=== PATIENT | female | born 1985 | race Caucasian/White ===

== ENCOUNTER 2021-11-30 16:23 | Emergency (ER) | payer BC, SELFPAY ==
[2021-11-30 16:32] VITALS: BP 121/80; PULSE 77; RESP 16; TEMP 36.8; O2SAT 100
--- NOTE | 2021-11-30 16:37 | ED.FEMALEGU ---
HPI - Female Genitourinary General Chief complaint: Urogenital-Female Stated complaint: Urinary Problem Time Seen by Provider: 11/30/21 16:30 Source: patient and RN notes reviewed History of Present Illness HPI Narrative: Patient is a 36-year-old female who presents the urgent care with complaints of a possible UTI. Patient states that 3 days ago she started having symptoms of urinary dysuria, urgency and dribbling. 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 Patient states that she is increased her water intake and has been using Azo. Denies of any fever, chills, nausea, vomiting, low back pain or abdominal pain. Patient states she has not had any recent UTI, it has been approximately 1 year. No other acute complaints. No acute distress noted. Patient aware of the plan of care. Some parts of this dictation were generated by voice recognition software and may contain typographical and/or grammatical inaccuracies. Related Data Home Medications Medication Instructions Recorded Confirmed Steroid Pack 11/30/21 sertraline [Zoloft] 50 mg PO DAILY 11/30/21 11/30/21 Allergies Allergy/AdvReac Type Severity Reaction Status Date / Time No Known Allergies Allergy Verified 11/30/21 16:43 Review of Systems Review of Systems: CONSTITUTIONAL: Denies fever, chills, or sweats. EYES: Denies visual changes, redness, or discharge. ENT: Denies rhinorrhea, congestion, sore throat, or otalgia. CARDIOVASCULAR: Denies chest pain, palpitations, or edema. RESPIRATORY: Denies cough or dyspnea. GASTROINTESTINAL: Denies abdominal pain, nausea, vomiting, or diarrhea. GENITOURINARY: Reports of dysuria, urgency and dribbling SKIN: Denies rash or itching. MUSCULOSKELETAL: Denies back pain, joint pain, or myalgia. NEUROLOGIC: Denies headache, numbness, or weakness. All other systems reviewed are negative, except as documented in HPI. PMFSH Comments At the time of my signature, I reviewed and agree with the nursing past medical, surgical, social, and family history. There is no relevant family history pertinent to the patient complaint. Exam Narrative: GENERAL: This is a well-nourished, well-developed patient, in no apparent distress. HEAD: normocephalic, atraumatic. EYES: PERRL. Sclera clear/white. Vision is grossly intact. EARS: External ears normal NOSE: External nose normal with no obvious nasal discharge, nares without redness, no rhinorrhea. THROAT: Mucous membranes moist NECK: Neck supple CARDIOVASCULAR: Regular rate and rhythm without murmurs, gallops, or rubs. RESPIRATORY: Clear to auscultation. Breath sounds equal bilaterally. No wheezes, rales, or rhonchi. GASTROINTESTINAL: Abdomen soft, non-tender, nondistended. Bowel sounds are active. SKIN: warm, intact with no suspicious lesions or rash, good texture and turgor. NEURO: awake, alert, and oriented to person, place and time. There were no obvious focal neurologic abnormalities. EXTREMITIES: No clubbing, cyanosis, or edema. BACK: Negative bilateral CVA tenderness Course Course Level of Care: Express Care Visit Vital Signs Vital signs: Vital Signs Temperature 98.3 F 11/30/21 16:32 Pulse Rate 77 11/30/21 16:32 Respiratory Rate 16 11/30/21 16:32 Blood Pressure 121/80 11/30/21 16:32 Pulse Oximetry 100 11/30/21 16:32 Temperature 98.3 F 11/30/21 16:32 Pulse Rate 77 11/30/21 16:32 Respiratory Rate 16 11/30/21 16:32 Blood Pressure 121/80 11/30/21 16:32 Pulse Oximetry 100 11/30/21 16:32 Reviewed MDM - Female Genitourinary MDM Narrative Medical decision making narrative: Reviewed lab results with the patient. She is aware that urine analysis does show a trace amount of blood and possible bacteria. Advised patient to start the antibiotic regimen as prescribed. Use the Pyridium as needed for bladder spasms. Continue your increase in water intake and avoid sugary and caffeinated drinks. Be zenaida
== END 2021-11-30 17:02 | disposition home or self-care (01) ==
PROVIDERS: Emergency Provider Nurse Practitioner Family
DX: N39.0 Urinary tract infection, site not specified (principal)
CPT/HCPCS: 81003; 87077; 87086; 87186; 99213; G0463

== ENCOUNTER 2025-05-21 13:13 | Emergency (ER) | payer OTHER, SELFPAY ==
--- OUTSIDE RECORDS SUMMARY | 2025-05-21 13:16 | XMS_ITS | Clinical Summary ---
Author Organization [facility] Address [address] [place] [address] Care Team Providers Care Timber Skidder Name Role Phone Rl Sandoval MD Primary Care Provider [phone] Allergies No known active allergies Medications sertraline (ZOLOFT) 50 mg tablet Take 1 tablet (50 mg total) by mouth daily 30 tablet 11 01/07/2025 Active Active Problems Problem Noted Date Diagnosed Date Previous delivery, delivered 05/05/2025 Twin dichorionic diamniotic placenta 05/05/2025 Request for sterilization 05/05/2025 Low lying placenta nos or wi thout hemorrhage, second trimester 03/02/2025 Overview (03/09/2025): MFM sono at 20 wk - A: posterior low lying placenta. RESOLVED on follow up imaging. GBS bacteriuria 01/07/2025 Overview (01/07/2025): Urine culture 12/10/24 - penicillin if labors Encounter for general counse ling and advice on contraceptive management 01/07/2025 Overview (01/07/2025): Interested in permanent contraception. Plan for bilateral salpingectomy at time of . Previous delivery affecting 0 12/11/2024 Overview (05/13/2025): 2022 - intolerance of labor, small T extension. Plan repeat - scheduled 06/24/25 at 1200 with bilateral salpingectomy. Dichorionic diamniotic twin , antepartu m 12/11/2024 Antepartum multigravida of advanced maternal age 0212/11/2024 Overview (01/07/2025): NIPT - low risk, females. ASA 81 mg daily at 12 weeks Encounter for preventive health examination 01/2025 Assessment & Plan (11/07/2024 6:14 PM INFECTION PREVENTION SPECIALIST): 39-year-old lady who is a new patient to me. She has a history of anxiety she is maintained on Zoloft 25 mg daily. Presently 5 weeks observation visit in one-month. No lab today TAVR leave this to the opposite attritional the upcoming visit. Has a history of obesity review of chart. Severe obesity (BMI >= 40) 08/11/2022 Assessment & Plan (11/07/2024 6:14 PM INFECTION PREVENTION SPECIALIST): Will arrange for last 10 years has been between 231 lb and 278 lb. Presently . Anxiety disorder 08/11/2022 Overview (01/07/2025): Managed by PCP. Discontinued Buspirone with in 2021. Zoloft weaned with - 25 mg every other day. - 25 mg daily. 01/2025 - increased to 50 mg daily. Assessment & Plan (11/07/2024 6:15 PM INFECTION PREVENTION SPECIALIST): Patient will be seeing Dr. 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 Estimated Date of Delivery Comme nts Yes 07/08/2025 Based on last al nstrual period of 10/01/2024 (Exact Date) Resolved Problems Problem Noted Date Diagnosed Date Resolved Date with 39 completed weeks gestation 03/05/2023 04/16/2023 GBS bacteriuria 09/12/2022 01/07/2025 Overview (09/12/2022): In - penicillin in labor Advanced maternal age, primi , antepartum 08/11/2022 04/16/2023 Overview (08/24/2022): NIPT - normal female. Dermoid cyst 05/20/2021 08/11/2022 Encounters Date Type Department Care Team Description 05/13/2025 3:25 PM CDT Office Visit [facility] [place] [facility] [address] [place] [address] Zuleyma Thorne MD care, subsequent , third trimester (Primary Dx) 05/13/2025 Orders Only [facility] [place] [facility] [address] [place] [address] Zuleyma Thorne MD Poor growth affecting in third trimester, fetus 1 of multiple gestation (Primary Dx); Maternal care for poor growth, third trimester, fetus 1 05/06/2025 Telephone [facility] [place] [facility] [address] [place] [address] Zuleyma Thorne MD Fall 05/05/2025 7:52 AM CDT - 05/05/2025 11:59 PM CDT Hospital Encounter [facility] [address] [place] [phone] Dichorionic diamniotic twin , antepartum Discharge Disposition: Discharge to home or self care 05/01/2025 8:40 AM CDT Office Visit [facility] [place] [facility] [address] [place] [address] Zuleyma Thorne MD care, subsequent , third trimester (Primary Dx) 04/20/2025 Results Follow-Up [facility] [place] [facility] [address] [place] [address] Zuleyma Thorne MD CBC with auto differential, GTT 50gm 1hr gestational screen, RPR Blood, Additional followed-up results: 3 04/17/2025 8:10 AM CDT Lab [facility] [address] [place] [address] Encounter for supervision of normal first in second trimester; 26 weeks gestation of 04/08/2025 2:23 PM CDT - 04/08/2025 11:59 PM CDT Hospital Encounter [address] [place] [phone] Low lying placenta nos or without hemorrhage, second trimester; Obesity affecting in second trimester, unspecified obesity type; Dichorionic diamniotic twin , antepartum Discharge Disposition: Discharge to home or self care 04/08/2025 Orders Only [address] [place] [phone] Sharon Jackson [facility] Dichorionic diamniotic twin , antepartum (Primary Dx) 04/01/2025 9:00 AM CDT Office Visit [facility] [place] [facility] [address] [place] [address] Zuleyma Thorne MD care, subsequent , second trimester (Primary Dx) 04/01/2025 Telephone [facility] [place] [facility] [address] [place] [address] Zuleyma Thorne MD 04/01/2025 Orders Only [facility] [place] [facility] [address] [place] [address] Zuleyma Thorne MD Encounter for supervision of normal first in second trimester (Primary Dx); 26 weeks gestation of 03/09/2025 9:41 AM CDT - 03/09/2025 11:59 PM CDT Hospital Encounter [address] [place] [phone] Encounter for follow-up ultrasound of anatomy Discharge Disposition: Discharge to home or self care 03/02/2025 3:20 PM CDT Office Visit [facility] [place] [facility] [address] [place] [phone] Zuleyma Thorne MD care, subsequent , second trimester (Primary Dx) 02/20/2025 12:01 PM CDT - 02/20/2025 11:59 PM CDT Hospital Encounter [facility] [address] [place], [place] [phone] Dichorionic diamniotic twin in first trimester; BMI 40.0-44.9, adult (HCC) Discharge Disposition: Discharge to home or self care 02/20/2025 Orders Only [facility] [address] [place] [address] Sharon Jackson RDMS Encounter for follow-up ultrasound of anatomy (Primary Dx) from Last 3 Months Immunizations Immunization Administration Dates Next Due Influenza, Quadrivalent, Split, Intramuscular ,08/19/2020 Influenza, Unspecified 09/12/2022 Moderna SARS-CoV-2 Monovalent Vaccination (12+ Y RS) 03/17/2021,02/17/2021 Pfizer Sars-Cov-2 Bivalent Vaccination (5-11 YRS ) 09/12/2022 Tdap 12/21/2022,06/01/2020 Surgical History Surgery Date Site/Laterality Comments APPENDECTOMY 11/05/2019 - 11/04/2020 OOPHERECTOMY 11/05/2020 - 11/04/2021 Left Mini laparotomy - 6.5 cm dermoid cyst SECTION 11/05/2022 - 11/04/2023 Medical History Medical History Date Comments Dermoid cyst of left ovary 2020 Family History Medical History Relation Name Comments Diabetes Mother Hypertension Mother Hyperlipidemia Sister Hypertension Sister Relation Name Status Comments Mother Sister Social History Tobacco Use Types Packs/Day Years Used Date Smoking Tobacco: Never Tobacco Cessation:Counseling Given: Not Answered Social Connection and Isolation Panel [NHANES] A nswer Date Recorded In a typical week, how many times do you talk on the phone with family, friends, or neighbors? Once a week 03/05/20 How often do you get togethe r with friends or relatives? Once a week 03/05/2023 Attends [employer] Services Not on file 03/05 Do you belong to any clubs o r organizations such as uatsdin groups, unions, fraternal or athletic groups, or school groups? No 03/05/2023 Attends Club or Organization Meetings Not on geraldine e 03/05/2023 Are you , , di vorced, , never , or living with a partner? Living with partner 03/05/2023 AUDIT-C Answer Date Recorded Q1: How often do you have a drink containing alc ohol? 2-4 times a month 11/07/2024 Q2: How many drinks containi ng alcohol do you have on a typical day when you are drinking? 3 or 4 11/07/2024 Q3: How often do you have si x or more drinks on one occasion? Never 11/07/2024 Overall Financial Resource Strain (CARDIA) Answe r Date Recorded How hard is it for you to pa y for the very basics like food, housing, medical care, and heating? Not hard at all 01/07/2025 PHQ-2 Answer Date Recorded PHQ-2 Total Score (If total score is 3 or more points, staff should administer the PHQ-9) 0 03/05/2023 [facility]at [facility] - Occupational Stress Questionnaire Answer Date Recorded Do you feel stress - tense, restless, nervous, or anxious, or unable to sleep at night because your mind is troubled all the time - these days? Not at all 03/05/2023 Exercise Vital Sign Answer Date Recorde d On average, how many days pe r week do you engage in moderate to strenuous exercise (like a brisk walk)? 5 days Minutes of Exercise per Session Not on file 03/05/2023 Hunger Vital Sign Answer Date Recorded Within the past 12 months, y ou worried that your food would run out before you got the money to buy more. Never true 01/08/20 25 Within the past 12 months, t he food you bought just didn't last and you didn't have money to get more. Never true 01/07/2025 PRAPARE - Transportation Answer Date Re corded In the past 12 months, has l ack of transportation kept you from medical appointments or from getting medications? No 03/2025 In the past 12 months, has l ack of transportation kept you from meetings, work, or from getting things needed for daily living? No 01/07/2025 Housing Stability Vital Sign Answer Deangelo e Recorded In the last 12 months, was t here a time when you were not able to pay the mortgage or rent on time? No 03/05/2023 In the last 12 months, how many places have you lived? 1 03/05/2023 In the last 12 months, was t here a time when you did not have a steady place to sleep or slept in a longterm (including now)? No 03/05/2023 [place] Depression Scale Answer Date Recorded [place] Depression Scale Total 7 04/16/2023 The thought of harming myself has occurred to me . Never 04/16/2023 Housing Stability Vital Sign Answer Deangelo e Recorded In the last 12 months, was t here a time when you were not able to pay the mortgage or rent on time? No 01/07/2025 In the past 12 months, how m any times have you moved where you were living? 1 01/07/2025 At any time in the past 12 m [facility], were you homeless or living in a longterm (including now)? No 01/07/2025 Personal Safety Answer Date Recorded Have you ever been in or are you currently in a harmful physical or emotional relationship or is someone making you feel afraid or unsafe? Denies 03/05/2023 Estimated Date of Delivery Comme nts Yes 07/08/2025 Based on last me nstrual period of 10/01/2024 (Exact Date) Sex and Gender Information Value Date Recorded Sex Assigned at Not on file Legal Sex Female 12:17 PM CDT Gender Identity Not on file Sexual Orientation Straight 09/05/2022 6: 33 AM CDT Occupation Industry Job Start Date Job End Date Not on file Not on file Not on file Not on file Obstetrics History Para Term AB IAB SAB Ectopic Multiple Livin g Live Births 2 1 1 0 1 1 Date Outcome GA Total Labor Labor/2nd/3rd Weight Sex Type Anes PTL Queenie A1 A5 Name Clin 2022 Term 39w 2d 0h 03m 0h 03m 3.352 kg (7 lb 6.2 oz) F C-Sec tion Epidur al N Livin g 4 9 BELLA OLSEN,G IRLAL Zuleyma Monsivais MD Complications: Intolera nce Delivery Location:This Facil ity ([facility] L AND D PROCEDURE) Current Comments 1. 2022 - cytotec/pitocin in duction for AMA. intolerance of labor. 1' LTCS with small T extension. Summary Episode Dates Number of Fetuses Estimated Date of Delivery 12/10/2024 - Present (05/21/2025) 07/08/2025 (set by Zuleyma Thorne MD on 12/10/2024 based on Last Menstrual Period on 10/01/2024 (Exact Date)) Dating Summary Based On ROBERT GA Diff Last Menstrual Period on 10/01/2024 (Exact Date) 07/08/2025 Working Ultrasound on 12/10/2024 07/05/2025 +3d GA:10w3d Ultrasound on 12/10/2024 07/08/2025 Same GA:10w0d Vitals Date GA Fund Present FHR Mvmt BP Weight Edema Alb Glu Ket Dil/ Eff/Sta 025 10w0d 122/7 8 122 kg (269 lb) 002/20/ 025 20w2d Inpatient data not displayed here. See encounter summary. 025 22w5d Inpatient data not displayed here. See encounter summary. 025 27w0d Inpatient data not displayed here. See encounter summary. 025 30w6d Inpatient data not displayed here. See encounter summary. Notes Progress Notes - Office Visi t - 05/13/2025 - GA:32w0d 05/13/2025 - 32w0d - Zuleyma Thorne MD Reviewed [facility] sono 05/05 - A: breech posterior placenta, MVP 7.6, EFW 1955 g (84%) RVOT visualized. B: transverse, posterior placenta, MVP 5.5, EFW 1749 g (54%). Discordance 10.5% - WNL. Repeat growth sono next visit. Has noticed increased CTXs, irregular and improve with rest. PTL precautions discussed. Progress Notes - Office Visi t - 05/01/2025 - GA:30w2d 05/01/2025 - 30w2d - Zuleyma Thorne MD Feeling well overall other than fatigue. Wakes frequently overnight to void. Reviewed [facility] sono 04/08: A - breech, posterior placenta, MVP 6.7, EFW 1117 g (67%). RVOT not visualized. B - transverse, posterior placenta, MVP 6.6, EFW 1037 g (45%). Scheduled for f/u growth 05/05. Will schedule repeat c/s for 38 wks. Progress Notes - Office Visi t - 04/01/2025 - GA:26w0d 04/01/2025 - 26w0d - Zuleyma Thorne MD Reviewed [facility] sono 5/5 - low lying placenta has resolved. Recommended f/u 4 weeks for growth and baby A RVOT view - she will contact their office to schedule next week. 28-wk labs ordered. Progress Notes - Office Visi t - 03/02/2025 - GA:21w5d 03/02/2025 - 21w5d - Zuleyma Thorne MD Reviewed [facility] sono 02/20 - A: cephalic, posterior LOW LYING placenta, MVP 6, EFW 361 g (59%). B: transverse, posterior placenta, MVP 5.3, EFW 354 g (53%). Scheduled for f/u views 5/5 of missed heart and facial views for A and recheck placenta. Bleeding and activity precautions discussed. Progress Notes - Office Visi t - 02/02/2025 - GA:17w5d 02/02/2025 - 17wd - Zuleyma Thorne MD Anxiety is much better with increased Zoloft to 50 mg. Feeling well overall. Has noticed some flutters. Anatomy scan with [facility] is scheduled 02/20. Progress Notes - Office Visi t - 01/07/2025 - GA:14w0d 01/07/2025 - 14wd - Zuleyma Thorne MD Reviewed OB labs - GBS in urine. Nausea is improved. Taking daily ASA. -- Anxiety - feeling overwhelmed at times. is supportive. Interested in increased dose. Will increase Zoloft from 25 to 50 mg daily and reassess next visit. -- Di-di twins - sono today - A: 14w0d, FHR 144. B; 14w0d, FHR 150. Referral made to [facility] for anatomy ultrasound. -- contraception - she is interested in permanent contraception. Discussed nature of the procedure, anticipated recovery, and surgical risks including anesthesia, infection, bleeding, injury to adjacent organs including bowel, bladder, and ectopic if were to occur. Plan for bilateral salpingectmy at time of repeat c/s. CTION PREVENTION SPECIALIST Progress Notes - Office Visi t - 12/10/2024 - GA:10w0d 12/10/2024 - 10w0d - Zuleyma Thorne MD New OB -- ROBERT 07/08 by definite LMP c/w sono today. Official ultrasound report is pending - twin , likely di-di. OB labs ordered with GC/CT. Advised B6/unisom for nausea. -- Anxiety/depression -stable on Zoloft 25 mg daily. Discussed risks of poorly controlled maternal mental health v medication exposure including MOY, pulm HTN with SSRIs. Continue current management. -- AMA - discussed risks including PIH, GDM, aneuploidy. Discussed genetic screening options, interpretation of same in multifetal gestations. She elects for NIPT. Given other risks including obesity and twin gestation, recommend ASA 81 mg daily at 12 weeks. -- Previous - LTCS with small T extension. Discussed risks/benefits of TOLAC v repeat C/S - uterine rupture v surgical risks, abnormal placentation. Given incision extension, recommend repeat c/s. -- Twin gestation - discussed associated risks including PIH, GDM, IUGR, PTL, delivery. Appears di-di on ultrasound today (official read pending). Will recheck next visit. Discussed if di-di, delivery recommendation is at 38 wks in otherwise uncomplicated pregnancies. Discussed risk of early delivery and option of co-management with MFM or transfer of care. She elects to continue care here at this point. Plan for anatomy scan with MFM. CTION PREVENTION SPECIALIST Last Filed Vital Signs Vital Sign Reading Time Taken Comments Blood Pressure 112/70 05/13/2025 3:21 PM CDT Pulse 85 11/07/2024 1:57 PM INFECTION PREVENTION SPECIALIST Temperature 36.9 C (98.4 F) 11/07/2024 1:57 PM INFECTION PREVENTION SPECIALIST Respiratory Rate 18 11/07/2024 1:57 PM INFECTION PREVENTION SPECIALIST Oxygen Saturation 99% 11/07/2024 1:57 PM INFECTION PREVENTION SPECIALIST Inhaled Oxygen Concentration - - Weight 126.6 kg (279 lb) 05/13/2025 3:21 PM CDT Height 162.6 cm (5' 4) 11/07/2024 1:57 PM INFECTION PREVENTION SPECIALIST Body Mass Index 47.89 11/07/2024 1:57 PM INFECTION PREVENTION SPECIALIST Plan of Treatment Upcoming Encounters Date Type Department Care Team (Late st Contact Info) Description 06/24/2025 12:00 PM CDT Hospital Encounter [facility] [address] [place] [address] Zuleyma Thorne MD [address] [place] [address] 06/24/2025 12:00 PM CDT - 06/24/2025 1:50 PM CDT Surgery [facility] [address] [place] [address] Zuleyma Thorne MD [address] [address] REPEAT SECTION Scheduled Procedures Name Priority Associated Diagnoses Date/Ti me REPEAT SECTION Previous delivery, delivered Twin dichorionic diamniotic placenta Request for sterilization 06/24/2025 12:00 PM CDT LND ADD ON TUBAL LIGATION REPEAT [id number] Previous delivery, delivered Twin dichorionic diamniotic placenta Request for sterilization 06/24/2025 12:00 PM CDT Health Maintenance Due Date Last Done Comments Varicella Vaccines (1 of 2 - 13+ 2-dose series) 2000 Hepatitis B Screening 2005 Cervical Cancer Screening 08/11/2023 08/11/2022 Depression Screening 04/16/2024 04/16/2023, 03/05/2023, 03/05/2023 Covid-19 Vaccine ( season) 2024 09/12/2022, 12/17/2021, 03/17/2021, Additional history exists Influenza Vaccine (#1) 2025 , 09/07/2021, 08/19/2020 Regular Well Visit/Exam 18-64 11/07/2025 11/07/2024 DTaP/Tdap/Td Vaccine (3 - Td or Tdap) 12/21/2032 12/21/2022, 06/01/2020 Hepatitis C Screening Completed 12/10/2024, 022 HPV Vaccines Aged Out No longer eligi ble based on patient's age to complete this topic Pneumococcal vaccine <65 Aged Out No longer eligible based on patient's age to complete this topic Procedures Procedure Name Priority Date/Time Associated Diagnosis Comments POCT URINE GLUCOSE AND PROTEIN Routine 05/13/2025 3:28 PM CDT care, subsequent , third trimester US OB FOLLOW UP Schedule Routine, Read Routine (OP Routine) 05/05/2025 7:52 AM CDT Dichorionic diamniotic twin , antepartum POCT URINE GLUCOSE AND PROTEIN Routine 05/01/2025 8:54 AM CDT care, subsequent , third trimester DIFFERENTIAL AUTO Routine 04/17/2025 9:3 5 AM CDT Encounter for supervision of normal first in second trimester 26 weeks gestation of GTT 50GM 1HR GESTATIONAL SCREEN Routine 04/17/2025 9:35 AM CDT Encounter for supervision of normal first in second trimester 26 weeks gestation of CBC WITH AUTO DIFFERENTIAL Routine 04/17/2025 9:35 AM CDT Encounter for supervision of normal first in second trimester 26 weeks gestation of URINE CULTURE Routine 04/17/2025 9:35 AM CDT Encounter for supervision of normal first in second trimester 26 weeks gestation of HIV 1/2 ANTIBODY PLUS P24 ANTIGEN Routine 04/17/2025 9:35 AM CDT Encounter for supervision of normal first in second trimester 26 weeks gestation of RPR Routine 04/17/2025 9:35 AM CDT Encounter for supervision of normal first in second trimester 26 weeks gestation of US OB FOLLOW UP Schedule Routine, Read Routine (OP Routine) 04/08/2025 2:23 PM CDT Low lying placenta nos or without hemorrhage, second trimester Obesity affecting in second trimester, unspecified obesity type Dichorionic diamniotic twin , antepartum POCT URINE GLUCOSE AND PROTEIN Routine 04/01/2025 9:02 AM CDT care, subsequent , second trimester US OB FOLLOW UP Schedule Routine, Read Routine (OP Routine) 03/09/2025 9:41 AM CDT Encounter for follow-up ultrasound of anatomy POCT URINE GLUCOSE AND PROTEIN Routine 03/02/2025 3:13 PM CDT care, subsequent , second trimester US OB DETAIL ANATOMY SINGLE OR FIRST GESTATION Schedule Routine, Read Routine (OP Routine) 02/20/2025 12:01 PM CDT Dichorionic diamniotic twin in first trimester BMI 40.0-44.9, adult (HCC) HEPATITIS C ANTIBODY Routine 12/10/2024 10:56 AM INFECTION PREVENTION SPECIALIST Encounter for supervision of other normal , first trimester 10 weeks gestation of PAP AND HIGH RISK HPV, REFLEX TO GENOTYPING Routine 08/11/2022 11:17 AM CDT Screening for malignant neoplasm of the cervix Encounter for supervision of normal first in first trimester from Last 3 Months or Most Recently Relevant to Health Maintenance Results * POCT urine glucose and protein (05/13/2025 3:28 PM CDT) Glucose, ur, POC Negative Negative Protein, ur, POC Negative Negative Lot Number [id number] Urine 05/13/2025 3:28 PM CDT Zuleyma Thorne MD POINT OF CARE TEST OR DERABLES Final Result * US Ob Follow Up (05/05/2025 7:52 AM CDT) Fetus# Fetus1 VIEWPOINT Estimated Weight 1,955 g&grams VIEWPOINT Placenta Details posterior, Previa-no VIEWPOINT Presentation Breech Low VIEWPOINT Fetus# Fetus2 VIEWPOINT Estimated Weight 1,749 g&grams VIEWPOINT Placenta Details posterior, Previa-no, no placental masses VIEWPOINT Presentation Transverse high VIEWPOINT Anatomical Region Laterality Modality Abdomen N/A Ultrasound 05/05/2025 7:53 AM CDT Impressions 05/05/2025 9:02 AM CDT Interval growth has been normal and concordant for the twins. Twin 1 remains the presenting twin and is breech today with normal to increased AFV (MVP = 7.6 cm.) Twin 2 is higher and in transverse presentation with normal AFV. The cardiac exam was completed for Twin 1 today with no anomalies identified. DA/DC twin IUP at 30 weeks + 6 days Breech/transverse presentations AGA and concordant growth Narrative Procedure Note Kala Wolf MD - 05/05/2025 IMPRESSION: Interval growth has been normal and concordant for the twins. Twin 1remains the presenting twin and is breech today with normal to increasedAFV (MVP = 7.6 cm.) Twin 2 is higher and in transverse presentation withnormal AFV. The cardiac exam was completed for Twin 1 today with noanomalies identified. DA/DC twin IUP at 30 weeks + 6 days Breech/transverse presentations AGA and concordant growth Result [facility] Zuleyma Thorne MD IMG OB US PROCEDURES Final Result * POCT urine glucose and protein (05/01/2025 8:54 AM CDT) Glucose, ur, POC Negative Negative Protein, ur, POC Negative Negative Lot Number [id number] Urine 05/01/2025 8:54 AM CDT Result [facility] Zuleyma Thorne MD POINT OF CARE TEST OR DERABLES Final Result * (ABNORMAL) Differential, auto (04/17/2025 9:35 AM CDT) Neutrophil abs 7.61(H) 1.50 - 6.50 K/cumm Comment:Testing performed by : [facility], [address] [place] [address]., [id number] Imm gran abs 0.09 0.00 - 0.10 K/cumm [facility] Comment:Testing performed by : [address] [address] Lymphocyte abs 1.49 0.80 - 3.30 K/cumm [facility] Comment:Testing performed by : [address] [address] Monocyte abs 0.89(H) 0.20 - 0.80 K/cumm [facility] [facility] Comment:Testing performed by : [facility], [address] [place] [address]., [id number] Eosinophil abs 0.24 0.00 - 0.50 K/cumm [facility]ER CH Comment:Testing performed by : [address] [address] Basophil abs 0.04 0.00 - 0.10 K/cumm CERNER CH Comment:Testing performed by : [address] [address] Neutrophil pct 73.4 % [facility] Comment: Interpretive Data Percent cell count reference ranges are not reported, since discordance with absolute values may lead to misinterpretation of CBC data. Current Interpretive Data was last revised on 2018. Testing performed by: [address] [address] Imm gran pct 0.9 % [facility] Comment: Interpretive Data Percent cell count reference ranges are not reported, since discordance with absolute values may lead to misinterpretation of CBC data. Current Interpretive Data was last revised on 2018. Testing performed by: [address] [address] Lymphocyte pct 14.4 % [facility] CH Comment: Interpretive Data Percent cell count reference ranges are not reported, since discordance with absolute values may lead to misinterpretation of CBC data. Current Interpretive Data was last revised on 2018. Testing performed by: [address] [address] Monocyte pct 8.6 % [facility] CH Comment: Interpretive Data Percent cell count reference ranges are not reported, since discordance with absolute values may lead to misinterpretation of CBC data. Current Interpretive Data was last revised on 2018. Testing performed by: [address] [address] Eosinophil pct 2.3 % [facility] Comment: Interpretive Data Percent cell count reference ranges are not reported, since discordance with absolute values may lead to misinterpretation of CBC data. Current Interpretive Data was last revised on 2018. Testing performed by: [address] [address] Basophil pct 0.4 % [facility] Comment: Interpretive Data Percent cell count reference ranges are not reported, since discordance with absolute values may lead to misinterpretation of CBC data. Current Interpretive Data was last revised on 2018. Testing performed by: [facility], [address] [place] [address]., [address] Blood 04/17/2025 9:35 AM CDT 04/17/2025 3:31 PM CDT Zuleyma Thorne MD LAB BLOOD ORDERABLES Final Result Performing Organization Address City/[facility] Co de Phone Number MATTIE GENTILE [phone] [address] [employer] [place] [address] * GTT 50gm 1hr gestational screen (04/17/2025 9:35 AM CDT) GTT 50g gest screen 124 <=140 mg/dL Comment: Interpretive Data Used for suspected gestational diabetes. The screening test uses 50 grams of glucose with sample obtained 1 hr later. Normal range: < 140 mg/dL. A glucose value of >140 mg/dL generally indicates the need for a full diagnostic tolerance test. Reference Interval Info: Diabetes Care 2005, Vol 28. Supplement 1,S37-S42. Report of the Expert Committee on the Diagnosis and Classification of Diabetes Mellitus. Diabetes Care 2020; 43(Supplement 1):S14-31. Current interpretive data was last revised on 2020. Testing performed by: [facility], [address] [place] [address]., [address] Blood 04/17/2025 9:35 AM CDT 04/17/2025 3:31 PM CDT Zuleyma Thorne MD LAB BLOOD ORDERABLES Final Result Performing Organization Address City/[facility] Co de Phone Number MATTIE GENTILE [phone] [address] [employer] [place] [address] * HIV 1/2 Antibody plus p24 Antigen Blood (04/17/2025 9:35 AM CDT) HIV 1/2 ab + p24 ag Nonreactive Nonreactive Comment: Nonreactive for HIV-1 antigen and HIV-1/HIV-2 antibodies. No laboratory evidence of HIV infection. If acute HIV infection is suspected, consider testing for HIV-1 RNA. Testing performed by: [address] [address] Blood 04/17/2025 9:35 AM CDT 04/17/2025 3:31 PM CDT Zuleyma Thorne MD LAB MICROBIOLOGY - NERMI ORDERABLES Final Result [address] Department [place] [address] * (ABNORMAL) CBC with auto differential (04/17/2025 9:35 AM CDT) WBC 10.36(H) 3.80 - 9.90 K/cumm Comment:Testing performed by : [address], [address] Hgb 11.6(L) 11.9 - 15.5 g/dL CERNER Comment:Testing performed by : [address], [address] Hct 37.0 35.6 - 45.5 % [facility] Comment:Testing performed by : [address] [address] Plt 276 150 - 400 K/cumm [facility] Comment:Testing performed by : [address], [address] MPV 10.8 9.1 - 12.3 fL [facility] Comment:Testing performed by : [address], [address] RBC 4.23 3.90 - 5.20 M/cumm [facility] Comment:Testing performed by : [address], [address] MCV 87.5 81.3 - 96.4 fL [facility] CH Comment:Testing performed by : [address], [address] MCH 27.4 27.1 - 33.3 pg [facility] Comment:Testing performed by : [address] [address] MCHC 31.4(L) 32.3 - 35.7 g/dL MATTIE Comment:Testing performed by : [facility], [address] [place] [address], [id number] RDW CV 14.1 11.1 - 14.9 % MATTIE Comment:Testing performed by : [facility], [address] [place] [address], [id number] RDW SD 44.7 35.7 - 48.1 fL MATTIE Comment:Testing performed by : [facility], [address] [place] [address]., [address] NRBC abs 0.00 0.00 - 0.01 K/cumm MATTIE Comment:Testing performed by : [facility], [address] [place] [address], [id number] Blood 04/17/2025 9:35 AM CDT 04/17/2025 3:31 PM CDT Zuleyma Thorne MD LAB BLOOD ORDERABLES Final Result Performing Organization Address [facility] Co de Phone Number MATTIE GENTILE [address] [place] [address] * RPR Blood (04/17/2025 9:35 AM CDT) RPR Nonreactive Nonreactive Comment:Testing performed by : [facility], [address] [place] [address], [id number] Blood 04/17/2025 9:35 AM CDT 04/17/2025 3:31 PM CDT Zuleyma Thorne MD LAB MICROBIOLOGY - GE NERAL ORDERABLES Final Result Performing Organization Address City/[facility]/ZIP Co de Phone Number MATTIE [address] [facility] Department [place] [address] * (ABNORMAL) Urine culture Urine, clean voided (04/17/2025 9:35 AM CDT) Report Final Report: Greater than or equal to 100,000 colonies/mL of Streptococcus agalactiae (Group B Streptococci) * * * * * * * * * * * * * * * * * * * * Resistance to penicillin in Group B Streptococcus has not been reported. Group B Streptococci are universally susceptible to beta-lactam antibiotics and vancomycin. Routine susceptibility testing is not performed. In penicillin allergic patients, please contact the laboratory at [phone] to request susceptibility testing * * * * * * * * * * * * * * * * * * * * Plus growth of clinically insignificant bacterial venkata. (.) Comment:Testing performed by : [facility], [address] [place]., [address] Organism STREPTOCOCCUS AGALACTIAE (GROUP B STREPTOCOCCI) MATTIE Organism PLUS GROWTH OF CLINICALLY INSIGNIFICANT VENKATA. MATTIE Urine, clean voided 04/17/2025 9:35 AM CDT 04/19/2025 2:42 AM CDT Narrative MATTIE GENTILE - 04/20/2025 8:03 AM CDT Testing performed by [facility] Micro[facility] Laboratory ([phone]) Zuleyma Thorne MD LAB MICROBIOLOGY - [facility] ORDERABLES Final Result MATTIE [address] [address] Department [place] [address] * US Ob Follow Up (04/08/2025 2:23 PM CDT) Fetus# Fetus1 VIEWPOINT Estimated Weight 1,117 g&grams VIEWPOINT Placenta Details posterior, Previa-no VIEWPOINT Presentation Breech Low VIEWPOINT Fetus# Fetus2 VIEWPOINT Estimated Weight 1,037 g&grams VIEWPOINT Placenta Details posterior, Previa-no, no placental masses VIEWPOINT Presentation Transverse high-right VIEWPOINT Anatomical Region Laterality Modality Abdomen N/A Ultrasound 04/08/2025 2:24 PM CDT Impressions 04/08/2025 4:30 PM CDT Interval growth of both twins has been normal and concordant. The anatomical survey for Twin 1 could not be completed today due to position and maternal scanning properties. Twin 1 is breech while Twin 2 is transverse. DA/DC twins at 27 weeks AGA & concordant growth Narrative Procedure Note Kala Wolf MD - 04/08/2025 IMPRESSION: Interval growth of both twins has been normal and concordant. Theanatomical survey for Twin 1 could not be completed today due to fetalposition and maternal scanning properties. Twin 1 is breech while Twin 2is transverse. DA/DC twins at 27 weeks AGA & concordant growth Zuleyma Thorne MD IMG OB US PROCEDURES Final Result * POCT urine glucose and protein (04/01/2025 9:02 AM CDT) Glucose, ur, POC Negative Negative Protein, ur, POC Negative Negative Lot Number [id number] Urine 04/01/2025 9:02 AM CDT Zuleyma Thorne MD POINT OF CARE TEST OR DERABLES Final Result * US Ob Follow Up (03/09/2025 9:41 AM CDT) Fetus# Fetus1 VIEWPOINT Placenta Details posterior, Previa-no VIEWPOINT Presentation Breech Low VIEWPOINT Fetus# Fetus2 VIEWPOINT Placenta Details posterior, Previa-no, no placental masses VIEWPOINT Presentation Transverse high VIEWPOINT Anatomical Region Laterality Modality Abdomen N/A Ultrasound 03/09/2025 9:43 AM CDT Impressions 03/09/2025 11:33 AM CDT DC twins - 22w 5d The anomaly screens are mostly completed as above. No malformations are apparent but visualization is limited by maternal habitus and suboptimal image resolution. Tw 1 is low/Breech. Tw 2 is high/Transverse. The placenta has retracted from the internal os and is no longer low-lying. Narrative Procedure Note Marvin Graham MD - 03/09/2025 IMPRESSION: DC twins - 22w 5d The anomaly screens are mostly completed as above. No malformations areapparent but visualization is limited by maternal habitus and suboptimalimage resolution. Tw 1 is low/Breech. Tw 2 is high/Transverse. The placenta has retracted from the internal os and is no longerlow-lying. Zuleyma Thorne MD IMG OB US PROCEDURES Final Result * (ABNORMAL) POCT urine glucose and protein (03/02/2025 3:13 PM CDT) Glucose, ur, POC Negative Negative MG/DL Protein, ur, POC Trace(A) Negative Lot Number [id number] Urine 03/02/2025 3:13 PM CDT Zuleyma Thorne MD POINT OF CARE TEST OR DERABLES Final Result * US Ob Detail Anatomy Single Or First Gestation (02/20/2025 12:01 PM CDT) Fetus# Fetus1 VIEWPOINT Estimated Weight 361 g&grams VIEWPOINT Placenta Details posterior, low lying, Previa-no, no placental masses, the placenta is 18 mm from internal os VIEWPOINT Presentation Vertex Low VIEWPOINT Fetus# Fetus2 VIEWPOINT Estimated Weight 354 g&grams VIEWPOINT Placenta Details posterior, Previa-no, no placental masses VIEWPOINT Presentation Transverse high VIEWPOINT Anatomical Region Laterality Modality Body N/A Ultrasound 02/20/2025 12:2 4 PM CDT Impressions 02/20/2025 2:49 PM CDT Dichorionic twin gestation 1. Fetus 1: Normal biometry and amniotic fluid. Detailed anatomic assessment as above which appeared grossly normal within the limitations of ultrasound with several limitations of the face and heart due to position. 2. Fetus 2: Normal biometry and amniotic fluid. Detailed anatomic assessment as above which appeared grossly normal within the limitations of ultrasound with a few limitations due to positions. 3. Normal adnexa. 4. TVCL was long and closed. Placenta is low lying and will be reassessed at follow up scan. Narrative Procedure Note Alisha Barriga MD - 02/20/2025 IMPRESSION: Dichorionic twin gestation 1. Fetus 1: Normal biometry and amniotic fluid. Detailed anatomicassessment as above which appeared grossly normal within the limitationsof ultrasound with several limitations of the face and heart due tofetal position. 2. Fetus 2: Normal biometry and amniotic fluid. Detailed anatomicassessment as above which appeared grossly normal within the limitationsof ultrasound with a few limitations due to positions. 3. Normal adnexa. 4. TVCL was long and closed. Placenta is low lying and will be reassessedat follow up scan. us Zuleyma Thorne MD IMG OB US PROCEDURES Final Result * Hepatitis C antibody Blood (12/10/2024 10:56 AM INFECTION PREVENTION SPECIALIST) Hep C Ab Nonreactive Nonreactive Comment: Interpretive Data Nonreactive: Antibodies to HCV not detected. Does NOT exclude the possibility of recent exposure to HCV. Equivocal: Equivocal for HCV antibodies. Supplemental molecular testing will be automatically performed to determine infection status in accordance with current CDC screening recommendations. Reactive: Positive for HCV antibodies. This may represent current or past HCV infection. Supplemental molecular testing will be automatically performed to determine current infection status in accordance with current CDC screening recommendations. Interpretive data was last revised on 2020. Testing performed by: [facility], [address] [place] [address]., [id number] Blood 12/10/2024 10:5 6 AM INFECTION PREVENTION SPECIALIST 12/10/2024 7:19 PM INFECTION PREVENTION SPECIALIST Zuleyma Thorne MD LAB MICROBIOLOGY - [facility] ORDERABLES Final Result MATTIE [address] Department [place] [address] * Pap and High Risk HPV, reflex to Genotyping (08/11/2022 11:17 AM CDT) Thin prep (Pap test) 08/11/2022 11:17 AM CDT 08/11/2022 11:17 AM CDT Narrative PATHOLOGY - 08/15/2022 12:59 PM CDT [facility] Department of Pathology [address] [place], [place] [id number] Final Report with Addendum Note to Patients: This report may contain a detailed description of human tissue sent by a health care provider to the laboratory for pathologic evaluation. The content of this report is essential for diagnosis and may provide important critical findings. This information may be unfamiliar to patients to review without a medical professional present. It is advised that the patient review this report in the presence of a health care provider who can answer questions and explain the details. Patient Name: MARK ALVARADO V. Address: [address] [place] [address] Gender: F : 1985 (Age: 37) Service: Laboratory Location: N : [id number] [facility] #: [id number] Patient Type: SPECIMEN Taken: 08/11/2022 Received: 08/11/2022 Accessioned:: 08/14/2022 Reported: 08/15/2022 Physician(s): MD Zuleyma Du MD Diagnosis: Source of Specimen: SCREENING THIN PREP IMAGED PAP w/ HPV Specimen Adequacy: - Specimen satisfactory for interpretation; endocervical/transformation zone component absent or insufficient General Category: - Negative for intraepithelial lesion or malignancy NONI Granado(ASCP) Report Electronically Reviewed and Signed Out By NONI Granado([facility]) 08/15/2022 12:59:52Addenda: HPV Test Interpretation NEGATIVE for types 16, 18, 31, 33, 35, 39, 45, 51, 52, 56, 58, 59, 66 and 68. Test performed utilizing Gen-Probe Aptima assay. NONI Sheikh(ASC)Report Electronically Reviewed and Signed Out By NONI Sheikh([facility]) 08/15/2022 13:15:10 Specimen(s) Received: A: SCREENING THIN PREP IMAGED PAP w/ HPV Clinical History: Menstrual History: The Pap test is a screening test used to aid in the detection of cervical cancer and its precursors. It should not be the sole means by which malignant and premalignant lesions are diagnosed. Both false negative and false positive results may occur. It also has poor sensitivity for the detection of endometrial lesions and should not be used to evaluate suspected endometrial abnormalities. For these reasons it is most important to obtain Pap tests at regular intervals. The performance characteristics of some immunohistochemical stains, fluorescence in-situ hybridization tests and immunophenotyping by flow cytometry cited in this report (if any) were determined by the Surgical Pathology Department at [facility] as part of an ongoing quality systems technician program and in compliance with federally mandated regulations drawn from the Clinical Laboratory Improvement Act of 1988 (CLIA '88). Some of these tests rely on the use of analyte specific reagents and are subject to specific labeling requirements by the US Food and Drug Administration. Such diagnostic tests may only be performed in a facility that is certified by the Department of Health and Human Services as a high complexity laboratory under CLIA '88. The FDA has determined that such clearance or approval is not necessary. This test is used for clinical purposes. It should not be regarded as investigational or for research. Nevertheless, federal rules concerning the medical use of analyte specific reagents require that the following disclaimer be attached to the report: This test was developed and its performance characteristics determined by the Surgical Pathology Department [facility]. It has not been cleared or approved by the U. S. Food and Drug Administration. Zuleyma Thorne MD LAB CYTOLOGY ORDERABL ES Final Result [facility] [address] [place] [address] from Last 3 Months or Most Recently Relevant to Health Maintenance Insurance [facility] [employer] [facility] HMO Advance Directives For more information, please contact: [phone] * Full Code (Latest Code Status on File) Date Activated Date Inactivated Comments 03/06/2023 8:02 AM 03/08/2023 10:01 PM * Full Code Date Activated Date Inactivated Comments 03/05/2023 5:58 AM 03/06/2023 8:02 AM Full CPR in ca se of cardiopulmonary arrest * Full Code Date Activated Date Inactivated Comments 05/19/2021 3:46 PM 05/20/2021 6:09 PM Care Teams [employer] Relationship Specialty Start Date End Date Rl Sandoval MD [address] [place] [address] PCP - General Internal Medicine 11/03/24
--- OUTSIDE RECORDS SUMMARY | 2025-05-21 13:16 | XMS_ITS | Referral Summary ---
Author Organization [facility] Address [address] [place] [address] Care Team Providers Care Lens Generator Name Role Phone Rl Sandoval MD Primary Care Provider [phone]- [phone] Encounters Date Type Department Care Team Description 05/13/2025 Orders Only [facility] [address] [place] [phone] Zuleyma Thorne MD Poor growth affecting in third trimester, fetus 1 of multiple gestation (Primary Dx); Maternal care for poor growth, third trimester, fetus 1 05/13/2025 3:25 PM CDT Office Visit [facility] [address] [place] [phone] Zuleyma Thorne MD care, subsequent , third trimester (Primary Dx) 05/06/2025 Telephone [facility] [address] [place] [phone] Zuleyma Thorne MD Fall 05/05/2025 7:52 AM CDT - 05/05/2025 11:59 PM CDT Hospital Encounter [facility] [address] [facility] [address] [place] [phone] Dichorionic diamniotic twin , antepartum Discharge Disposition: Discharge to home or self care 05/01/2025 8:40 AM CDT Office Visit [facility] [address] [place] [address] Zuleyma Thorne MD care, subsequent , third trimester (Primary Dx) 04/20/2025 Results Follow-Up [facility] [address] [place] [address] Zuleyma Thorne MD CBC with auto differential, GTT 50gm 1hr gestational screen, RPR Blood, Additional followed-up results: 3 04/17/2025 8:10 AM CDT Lab [facility] [address] [place] [address] Encounter for supervision of normal first in second trimester; 26 weeks gestation of 04/08/2025 Orders Only [address] [place] [phone] Sharon Jackson RDMS Dichorionic diamniotic twin , antepartum (Primary Dx) 04/08/2025 2:23 PM CDT - 04/08/2025 11:59 PM CDT Hospital Encounter [address] [place] [phone] Low lying placenta nos or without hemorrhage, second trimester; Obesity affecting in second trimester, unspecified obesity type; Dichorionic diamniotic twin , antepartum Discharge Disposition: Discharge to home or self care 04/01/2025 Telephone [facility] [address] [place] [address] Zuleyma Thorne MD 04/01/2025 Orders Only [facility] [address] [place] [address] Zuleyma Thorne MD Encounter for supervision of normal first in second trimester (Primary Dx); 26 weeks gestation of 04/01/2025 9:00 AM CDT Office Visit [facility] [address] [place] [address] Zuleyma Thorne MD care, subsequent , second trimester (Primary Dx) 03/09/2025 9:41 AM CDT - 03/09/2025 11:59 PM CDT Hospital Encounter [address] [place] [address] Encounter for follow-up ultrasound of anatomy Discharge Disposition: Discharge to home or self care 03/02/2025 3:20 PM CDT Office Visit [facility] [address] [place] [address] Zuleyma Thorne MD care, subsequent , second trimester (Primary Dx) 02/20/2025 Orders Only [address] [address] Sharon Jackson, [facility] Encounter for follow-up ultrasound of anatomy (Primary Dx) 02/20/2025 12:01 PM CDT - 02/20/2025 11:59 PM CDT Hospital Encounter [address] [address] Dichorionic diamniotic twin in first trimester; BMI 40.0-44.9, adult (HCC) Discharge Disposition: Discharge to home or self care from Last 3 Months Allergies No known active allergies Medications sertraline [...] 01/2025 Assessment & Plan (11/07/2024 6: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 She has a history of anxiety she is maintained on Zoloft 25 mg daily. Presently 5 weeks observation visit in one-month. No lab today TAVR leave this to the opposite attritional the upcoming visit. Has a history of obesity review of chart. 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 Presently . Anxiety disorder 08/11/2022 Overview (01/07/2025): Managed by PCP. Discontinued Buspirone with in 2021. Zoloft weaned with - 25 mg every other day. - 25 mg daily. 01/2025 - increased to 50 mg daily. Assessment & Plan (11/07/2024 6:15 PM TUBE BENDING MACHINE OPERATOR): Patient will be seeing Dr. 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 Estimated Date of Delivery Comme nts Yes 07/08/2025 Based on last me nstrual period of 10/01/2024 (Exact Date) Resolved Problems Problem Noted Date Diagnosed Date Resolved Date with 39 completed weeks gestation 03/05/2023 04/16/2023 GBS bacteriuria 09/12/2022 01/07/2025 Overview (09/12/2022): In - penicillin in labor Advanced maternal age, primi , antepartum 08/11/2022 04/16/2023 Overview (08/24/2022): NIPT - normal female. Dermoid cyst 05/20/2021 08/11/2022 Immunizations Immunization Administration Dates Next Due Influenza, Quadrivalent, Split, Intramuscular ,08/19/2020 Influenza, Unspecified 09/12/2022 Moderna SARS-CoV-2 Monovalent Vaccination (12+ Y RS) 03/17/2021,02/17/2021 Pfizer Sars-Cov-2 Bivalent Vaccination (5-11 YRS ) 09/12/2022 Tdap 12/21/2022,06/01/2020 Social History Tobacco Use Types Packs/Day Years Used Date Smoking Tobacco: Never Tobacco Cessation:Counseling Given: Not Answered Social Connection and Isolation Panel [NHANES] A nswer Date Recorded In a typical week, how many times do you talk on the phone with family, friends, or neighbors? Once a week 03/05/20 23 How often do you get togethe r with friends or relatives? Once a week 03/05/2023 Attends [employer] Not on file 03/05 Do you belong to any clubs o r organizations such as religion groups, unions, fraternal or athletic groups, or [...] staff should administer the PHQ-9) 0 03/05/2023 [facility] of Occupat ional Health - Occupational Stress Questionnaire Answer Date Recorded [...] place to sleep or slept in a fci (including now)? No 03/05/2023 Cleveland Depression Scale Answer Date Recorded [place] Depression Scale Total 7 04/16/2023 The thought [...] any time in the past 12 m [facility], were you homeless or living in a fci (including now)? No 01/07/2025 Personal Safety Answer [...] file Not on file Not on file Last Filed Vital Signs Vital Sign Reading Time Taken Comments Blood Pressure 112/70 05/13/2025 3:21 PM CDT Pulse 85 11/07/2024 1:57 PM TUBE BENDING MACHINE OPERATOR Temperature 36.9 C (98.4 F) 11/07/2024 1:57 PM TUBE BENDING MACHINE OPERATOR Respiratory Rate 18 11/07/2024 1:57 PM TUBE BENDING MACHINE OPERATOR Oxygen Saturation 99% 11/07/2024 1:57 PM TUBE BENDING MACHINE OPERATOR Inhaled Oxygen Concentration - - Weight 126.6 kg (279 lb) 05/13/2025 3:21 PM CDT Height 162.6 cm (5' 4) 11/07/2024 1:57 PM TUBE BENDING MACHINE OPERATOR Body Mass Index 47.89 11/07/2024 1:57 PM TUBE BENDING MACHINE OPERATOR Plan of Treatment Upcoming Encounters Date Type Department Care Team (Late st Contact Info) Description 06/24/2025 12:00 PM CDT Hospital Encounter [facility] [address] [place] [address] Zuleyma Thorne MD [address] [id number] 06/24/2025 12:00 PM CDT - 06/24/2025 1:50 PM CDT Surgery [facility] [address] [place] [address] Zuleyma Thorne MD [address] [id number] REPEAT SECTION Scheduled Procedures Name Priority Associated Diagnoses Date/Ti me REPEAT SECTION Previous delivery, delivered Twin dichorionic diamniotic placenta Request for sterilization 06/24/2025 12:00 PM CDT LND ADD ON TUBAL LIGATION REPEAT [id number] Previous delivery, delivered Twin dichorionic diamniotic placenta Request for sterilization 06/24/2025 12:00 PM CDT Procedures Procedure Name Priority Date/Time Associated Diagnosis Comments POCT URINE GLUCOSE AND PROTEIN Routine 05/13/2025 3:28 PM CDT care, subsequent , third trimester OB FOLLOW UP Schedule Routine, Read Routine [...] HEPATITIS C ANTIBODY Routine 12/10/2024 10:56 AM TUBE BENDING MACHINE OPERATOR Encounter for supervision of other normal , [...] Protein, ur, POC Negative Negative Lot Number [id number] Urine 05/13/2025 3:28 PM CDT us Zuleyma Thorne MD POINT OF CARE TEST [...] days Breech/transverse presentations AGA and concordant growth Zuleyma Thorne MD IMG OB US PROCEDURES Final Result * POCT urine glucose and protein (05/01/2025 8:54 AM CDT) Glucose, ur, POC Negative Negative Protein, ur, POC Negative Negative Lot Number [id number] Urine 05/01/2025 8:54 AM CDT Zuleyma Thorne MD POINT OF CARE TEST OR DERABLES Final Result * (ABNORMAL) Differential, auto (04/17/2025 9:35 AM CDT) Pathologist [facility] Neutrophil abs 7.61(H) 1.50 - 6.50 K/cumm Comment:Testing performed by : [address] [address] Imm gran abs 0.09 0.00 - 0.10 K/cumm CERNER CH Comment:Testing performed by : [facility], [address] [place] [address]., [address] Lymphocyte abs 1.49 0.80 - 3.30 K/cumm CERNER CH Comment:Testing performed by : [address] [address] Monocyte abs 0.89(H) 0.20 - 0.80 K/cumm CERNER CH Comment:Testing performed by : [address] [address] Eosinophil abs 0.24 0.00 - 0.50 K/cumm CERNER CH Comment:Testing performed by : [facility], [address] [place] [address]., [address] Basophil abs 0.04 0.00 - 0.10 K/cumm CERNER CH Comment:Testing performed by : [address], [address] Neutrophil pct 73.4 % CERNER Comment: Interpretive Data Percent cell count reference ranges are not reported, since discordance with absolute values may lead to misinterpretation of CBC data. Current Interpretive Data was last revised on 2018. Testing performed by: [address], [address] Imm gran pct 0.9 % CERNER Comment: Interpretive Data Percent cell count reference ranges are not reported, since discordance with absolute values may lead to misinterpretation of CBC data. Current Interpretive Data was last revised on 2018. Testing performed by: [facility], [address] [place] [address]., [address] Lymphocyte pct 14.4 % [facility] Comment: Interpretive Data Percent cell count reference ranges are not reported, since discordance with absolute values may lead to misinterpretation of CBC data. Current Interpretive Data was last revised on 2018. Testing performed by: [facility], [address] [place] [address]., [address] Monocyte pct 8.6 % [facility] Comment: Interpretive Data Percent cell count reference ranges are not reported, since discordance with absolute values may lead to misinterpretation of CBC data. Current Interpretive Data was last revised on 2018. Testing performed by: [address] [address] Eosinophil pct 2.3 % [facility] Comment: Interpretive Data Percent cell count reference ranges are not reported, since discordance with absolute values may lead to misinterpretation of CBC data. Current Interpretive Data was last revised on 2018. Testing performed by: [address] [address] Basophil pct 0.4 % [facility] Comment: Interpretive Data Percent cell count reference ranges are not reported, since discordance with absolute values may lead to misinterpretation of CBC data. Current Interpretive Data was last revised on 2018. Testing performed by: [address] [address] Blood 04/17/2025 9:35 AM CDT 04/17/2025 3:31 PM CDT us Zuleyma Thorne MD LAB BLOOD ORDERABLES Final Result [facility] [address] Department [place] [address] * GTT 50gm 1hr gestational screen (04/17/2025 [...] last revised on 2020. Testing performed by: [address] [address] Blood 04/17/2025 9:35 AM CDT 04/17/2025 3:31 PM CDT Zuleyma Thorne MD LAB BLOOD ORDERABLES Final Result Performing Organization Address [facility]/ZIP Co de Phone Number MATTIE [phone] [place] [address] * HIV 1/2 Antibody plus p24 Antigen Blood (04/17/2025 9:35 AM CDT) Pathologist [facility] HIV 1/2 ab + p24 ag Nonreactive Nonreactive Comment: Nonreactive for HIV-1 antigen and HIV-1/HIV-2 antibodies. No laboratory evidence of HIV infection. If acute HIV infection is suspected, consider testing for HIV-1 RNA. Testing performed by: [address] [address] Blood 04/17/2025 9:35 AM CDT 04/17/2025 3:31 PM CDT Zuleyma Thorne MD LAB MICROBIOLOGY - GE NERAL ORDERABLES Final Result Performing Organization Address City/[facility]/ZIP Co de Phone Number MATTIE [phone] Department [place] [address] * (ABNORMAL) CBC with auto differential (04/17/2025 9:35 AM CDT) [facility] WBC 10.36(H) 3.80 - 9.90 K/cumm Comment:Testing performed by : [address], [address] Hgb 11.6(L) 11.9 - 15.5 g/dL CERNER CH Comment:Testing performed by : [address], [address] Hct 37.0 35.6 - 45.5 % CERNER CH Comment:Testing performed by : [facility], [address] [place] [address], [address] Plt 276 150 - 400 K/cumm CERNER CH Comment:Testing performed by : [address], [address] MPV 10.8 9.1 - 12.3 fL CERNER CH Comment:Testing performed by : [address], [address] RBC 4.23 3.90 - 5.20 M/cumm CERNER CH Comment:Testing performed by : [address], [address] MCV 87.5 81.3 - 96.4 fL CERNER CH Comment:Testing performed by : [address], [address] MCH 27.4 27.1 - 33.3 pg CERNER CH Comment:Testing performed by : [address], [address] MCHC 31.4(L) 32.3 - 35.7 g/dL CERNER CH Comment:Testing performed by : [address], [address] RDW CV 14.1 11.1 - 14.9 % CERNER CH Comment:Testing performed by : [address], [address] RDW SD 44.7 35.7 - 48.1 fL CERNER CH Comment:Testing performed by : [address], [address] NRBC abs 0.00 0.00 - 0.01 K/cumm CERNER CH Comment:Testing performed by : [address], [address] Blood 04/17/2025 9:35 AM CDT 04/17/2025 3:31 PM CDT Zuleyma Thorne MD LAB BLOOD ORDERABLES Final Result Performing Organization Address [facility] Co de Phone Number MATTIE [phone] Department [place] [address] * RPR Blood (04/17/2025 9:35 AM CDT) RPR Nonreactive Nonreactive Comment:Testing performed by : [facility], [address] [place] [address]., [address] Blood 04/17/2025 9:35 AM CDT 04/17/2025 3:31 PM CDT Zuleyma Thorne MD LAB MICROBIOLOGY - GE NERAL ORDERABLES Final Result Performing Organization Address [facility] Co de Phone Number MATTIE [address] Department [place] [address] * (ABNORMAL) Urine culture Urine, clean voided [...] allergic patients, please contact the laboratory at [phone] to request susceptibility testing * * * * * * * * * * * * * * * * * * * * Plus growth of clinically insignificant bacterial venkata. (.) Comment:Testing performed by : [facility], [address] [place]., [address] Organism STREPTOCOCCUS AGALACTIAE (GROUP B STREPTOCOCCI) [facility] Organism PLUS GROWTH OF CLINICALLY INSIGNIFICANT VENKATA. MATTIE Urine, clean voided 04/17/2025 9:35 AM CDT 04/19/2025 2:42 AM CDT Narrative MATTIE GENTILE - 04/20/2025 8:03 AM CDT Testing performed by [facility] Microbiology Laboratory ([phone]) us Zuleyma Thorne MD LAB MICROBIOLOGY - NERSD ORDERABLES Final Result [facility]IE [facility] [address] Department [place] [address] * US Ob Follow Up (04/08/2025 2:23 [...] at 27 weeks AGA & concordant growth us Zuleyma Thorne MD IMG OB US PROCEDURES Final Result * POCT urine glucose and protein (04/01/2025 9:02 AM CDT) Glucose, ur, POC Negative Negative Protein, ur, POC Negative Negative Lot Number [id number] Urine 04/01/2025 9:02 AM CDT Zuleyma Thorne [...] Protein, ur, POC Trace(A) Negative Lot Number [id number] Urine 03/02/2025 3:13 PM CDT Zuleyma Thorne [...] Hepatitis C antibody Blood (12/10/2024 10:56 AM TUBE BENDING MACHINE OPERATOR) Hep C Ab Nonreactive Nonreactive Comment: Interpretive [...] last revised on 2020. Testing performed by: [facility], [address] [place] [address]., [address] Blood 12/10/2024 10:5 6 AM TUBE BENDING MACHINE OPERATOR 12/10/2024 7:19 PM TUBE BENDING MACHINE OPERATOR Zuleyma Thorne MD LAB MICROBIOLOGY - [facility] ORDERABLES Final Result MATTIE [address] Department [place] [address] * Pap and High Risk HPV, reflex to Genotyping (08/11/2022 11:17 AM CDT) Thin prep (Pap test) 08/11/2022 11:17 AM CDT 08/11/2022 11:17 AM CDT Narrative PATHOLOGY - 08/15/2022 12:59 PM CDT [facility] Department of Pathology [address] [place] [address] Final Report with Addendum Note to Patients: [...] details. Patient Name: MARK ALVARADO V. Address: [address] [place] [address] Gender: F : 1985 (Age: 37) Service: Laboratory Location: [facility] #: [id number] Patient Type: SPECIMEN Taken: 08/11/2022 Received: 08/11/2022 Accessioned:: 08/14/2022 Reported: 08/15/2022 Physician(s): MD Zuleyma Du MD Diagnosis: Source of Specimen: SCREENING THIN PREP IMAGED PAP w/ HPV Specimen Adequacy: - Specimen satisfactory for interpretation; endocervical/transformation zone component absent or insufficient General Category: - Negative for intraepithelial lesion or malignancy NONI Granado(ASCP) Report Electronically Reviewed and Signed Out By NONI Granado(ASC) 08/15/2022 12:59:52Addenda: HPV Test Interpretation NEGATIVE for types 16, 18, 31, 33, 35, 39, 45, 51, 52, 56, 58, 59, 66 and 68. Test performed utilizing Gen-Probe Aptima assay. NONI Sheikh(ASCP)Report Electronically Reviewed and Signed Out By GINA SheikhASC) 08/15/2022 13:15:10 Specimen(s) Received: A: SCREENING THIN [...] determined by the Surgical Pathology Department at [facility] as part of an ongoing quality director program and in compliance with federally mandated [...] characteristics determined by the Surgical Pathology Department [facility]. It has not been cleared or approved by the U. S. Food and Drug Administration. Zuleyma Thorne MD LAB CYTOLOGY ORDERABL ES Final Result PATHOLOGY [address] [place] [address] from Last 3 Months or Most Recently Relevant to Health Maintenance [facility] Advance Directives For more information, please contact: [phone] * Full Code (Latest Code Status on File) Date Activated Date Inactivated Comments 03/06/2023 8:02 AM 03/08/2023 10:01 PM * Full Code Date Activated Date Inactivated Comments 03/05/2023 5:58 AM 03/06/2023 8:02 AM Full CPR in ca se of cardiopulmonary arrest * Full Code Date Activated Date Inactivated Comments 05/19/2021 3:46 PM 05/20/2021 6:09 PM Care Teams Lens Generator Relationship Specialty Start Date End Date Rl Sandoval MD [address] [place] [address] PCP - General Internal Medicine 11/03/24
[2025-05-21 13:28] VITALS: BP 143/76; PULSE 101; RESP 18; TEMP 36.6
[2025-05-21 13:38] LABS: EDSTREPNEGPOS1 Negative (Negative)
--- NOTE | 2025-05-21 15:22 | ED.URI ---
HPI - URI/Sore Throat General Chief Complaint: Upper Respiratory Infection Stated Complaint: throat/sinus/cough Time Seen by Provider: 05/21/25 13:34 Source: patient and RN notes reviewed Mode of arrival: ambulatory Limitations: no limitations History of Present Illness HPI Narrative: Patient presents today complaining of 6 day history of nasal congestion and sinus pressure, right ear pain, sore throat, cough, fatigue. She has tried Mucinex DM and Tylenol with some mild relief as well as using a Neti pot. 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 Denies fever or shortness of breath. She is currently 33 weeks with twins, . Denies any abdominal pain or cramping, vaginal discharge or bleeding Related Data Home Medications ?Medication ?Instructions ?Recorded ?Confirmed ?Last Taken ?Type Steroid Pack 11/30/21 Unknown History sertraline 50 mg tablet (Zoloft) 50 mg PO DAILY 11/30/21 11/30/21 Unknown History sertraline 25 mg tablet mg 05/21/25 Unknown History Allergies Allergy/AdvReac Type Severity Reaction Status Date / Time No Known Allergies Allergy Verified 11/30/21 16:43 [facility] Comments At time of signature, I have reviewed and agree with nursing past medical, surgical, social and family history unless otherwise noted. Please see nursing chart for further information. There is no relevant family history pertinent to the presenting complaint Exam Narrative: GENERAL: Mildly ill-appearing, well-nourished, and in no acute distress. HEAD: Normocephalic, atraumatic. EYES: EOMI. No redness or drainage. Conjunctivae normal. ENT: Mucous membranes pink and moist. Nares congested. No rhinorrhea. TMs normal bilaterally. Throat normal. Uvula midline. NECK: Normal AROM. Supple. No lymphadenopathy. CHEST: No respiratory distress. Clear to auscultation. HEART: Regular rate and rhythm. No murmur appreciated. ABDOMEN: Soft, nontender, normal active bowel sounds. EXTREMITIES: Normal range of motion. No edema. SKIN: Warm, dry, no rash. Capillary refill normal. Normal skin turgor. NEURO: No focal deficits. Alert and oriented x3. Gait steady. PSYCH: Normal affect. No signs of depression or anxiety. Course Course Level of Care: Express Care Visit Vital Signs Vital signs: Vital Signs Temperature 97.9 F 05/21/25 13:28 Pulse Rate 101 H 05/21/25 13:28 Respiratory Rate 18 05/21/25 13:28 Blood Pressure 143/76 H 05/21/25 13:28 Oxygen Delivery Room Air 05/21/25 13:28 Temperature 97.9 F 05/21/25 13:28 Pulse Rate 101 H 05/21/25 13:28 Respiratory Rate 18 05/21/25 13:28 Blood Pressure 143/76 H 05/21/25 13:28 Oxygen Delivery Room Air 05/21/25 13:28 Reviewed MDM - URI/Sore Throat MDM Narrative Medical decision making narrative: 39-year-old female patient presents today 33 weeks , with 6 day history of sinus congestion, cough, fatigue. She has been using [id number] Mucinex DM and Tylenol with some relief. Denies fever shortness of breath. No abdominal cramping or vaginal discharge. Rapid strep screen negative. Culture pending. Symptoms likely viral in etiology. Vital signs stable. Recommend continuing OTC treatment. Discussed duration of viral URI. Strict ED precautions and when to call OB. Patient agrees with plan. Differential Diagnosis Differential diagnosis: Likely upper respiratory infection, otitis media, sinusitis, viral infection, bronchitis, pharyngitis and other (Strep throat) Lab Data Attestation: I reviewed the patient's lab results. Labs: Lab Results 05/21/25 Range/Units 13:36 POC Grp A Strep Screen Negative (Negative) Critical Care Time Critical Care Time Critical Care Time: No Discharge Plan Discharge Clinical Impression: Upper respiratory infection Qualifiers: URI type: unspecified URI Qualified Code(s): J06.9 - Acute upper respiratory infection, unspecified Patient Disposition: Home Condition: Stable Instructions: Upper Respiratory Infection (DC) Additional Instructions: Your rapid strep swab was negative today at [facility]. You will be notified in a few days if the culture comes back positive for strep, and appropriate antibiotics will be called in for you at that time. Your symptoms are likely due to a viral illness, which is not treated with antibiotics. Viral symptoms can be present for up to 7-10 days. Take Tylenol for fever or pain. Rest and stay hydrated. Follow up with your PCP in 3-4 days if symptoms are not improving. Go to the ER immediately if you have any difficulty breathing or swallowing. Call your OB if you have any abdominal pain or cramping, vaginal bleeding or abnormal vaginal discharge. Your blood pressure was elevated above 120/80 today at Urgent Care. This puts you above the threshold for follow up. Please schedule a followup visit with your personal physician as soon as possible, for further evaluation and treatment. Even blood pressure exceeding 120/80 may indicate pre-hypertension. Patient Language: Occitan Prescriptions: No Action sertraline 25 mg tablet sertraline [Zoloft] 50 mg Tablet 50 mg PO DAILY Steroid Pack phenazopyridine [Pyridium] 100 mg tablet 100 mg PO TID PRN (Reason: pain) 3 Days Qty: 9 0RF nitrofurantoin monohyd/m-cryst [Macrobid] 100 mg capsule 100 mg PO Q12H 7 Days Qty: 14 0RF Rx Instructions: must administer with a meal/food Follow-up/Referrals: Jaime,Rl Hoang MD [Primary Care Provider] - Stand Alone Forms: Work/School Release IP Time of Disposition: 13:50
== END 2025-05-21 13:55 | disposition home or self-care (01) ==
PROVIDERS: Emergency Provider Nurse Practitioner; PCP Internal Medicine
DX: O99.513 Diseases of the respiratory system complicating pregnancy, third trimester (principal); Z3A.33 33 weeks gestation of pregnancy; J06.9 Acute upper respiratory infection, unspecified; Z20.822 Contact with and (suspected) exposure to COVID-19
CPT/HCPCS: 87081; 87880; 99212; G0463